=== PATIENT | male | born 1985 | race Caucasian/White ===

== ENCOUNTER 2017-01-05 14:56 | Inpatient (IN) | payer SELFPAY ==
--- NOTE | ~2017-01-05 | PN ---
Unit #: [id number] #: [id number] Patient: MICHAELA RUSSELL [id number] [facility] [address] [place] [address] [id number] MR#: [id number] NAME: MICHAELA RUSSELL. ROOM: P214 Age: 31 Sex: M Admission Date: 01/05/2017 : 1985 Attending Physician: Beka Syed M.D. Admitting Physician: Beka Syed M.D. Primary Care Physician: Primary Care Physician Sophie PAIGE NOTES DATE OF SERVICE: 01/06/2017 SUBJECTIVE Mr. Russell is a 31-year-old white male who was seen today and chart was reviewed, and case was discussed with the staff. He has been anxious, withdrawn, and seclusive to himself and reports persistent depressive symptoms with feelings of hopelessness. Meanwhile, he has been compliant with the treatment recommendations and has been taking his medications including his Celexa and Vistaril and has been tolerating them fairly well. MENTAL STATUS EXAMINATION Young white male who was casually dressed with a fair personal hygiene and appears to be in no acute distress or discomfort. He was awake and alert on interaction with intact orientation. His mood was anxious with a congruent affect. He reports having suicidal ideation, but denies any homicidal ideations. His insight and judgment remain slightly impaired. TREATMENT PLAN 1. We will continue him on his current treatment protocol. We will monitor his response to the medications and make further adjustments as needed. 2. We will continue to follow up. Dictated by... Antonio Leo/elaine TD: 01/07/2017 05:20 JOB #: [id number] [facility]LE[facility] PROGRESS NOTES X Beka Syed MD PROGRESS NOTE
--- NOTE | ~2017-01-05 | A ---
[facility] Nutrition Therapy DATE: 01/06/17 Patient: MICHAELA DE LEON Physician: HAYDEN Address: [facility] [address] Room/Bed: [address], Zip: [place] [address] Admit Date: 01/05/17 Date of : [birth year] Height: 5 11 Weight: 134 61.12566 NUTRITIONAL ASSESSMENT: REASON: Low BMI + 1 point malnutrition risk score for unintentional weight loss Admitting Dx: 31 y/o male admitted with depression, ETOH abuse PMH: No new H&P. Obtained from 11/25/16 H&P: 3 ppd smoker, ETOH abuse (binge drinker), SI Anthropometrics: Ht: 71", Wt: 135 lbs, IBW: 172 lbs, 78% IBW, BMI: 18 Labs: Glucose 137 Meds: Milk of Mg, Mag-al, Thiamine, Folic acid, Balance B-50, MVI with minerals, Phenergan/zofran, psych meds noted I/O & Bowel function: No issues Assessment: Chart reviewed, events noted. Patient with several previous admissions to this facility with most recent admission in late November, undergoing ETOH detox. Patient is a cook at [email or web address], lives with parents. He is now clinically underweight, weight on 11/25/16 documented as 155 lbs, patient now weighs 135 lbs. Reported poor appetite and weight loss of unknown amount during needs assessment at admission yesterday, no appetite yet reported for today. RD suspected weight loss of approx. 20 lbs in the past 5 weeks per past weights if accurate (13% body weight loss; severe) due to worsened depression, SI and binge drinking. Patient is on a regular diet with large portion entree ordered per diet order, but this is not documented on cardex- RD added to cardex and will notify [facility] staff to send larger portions. Patient may benefit from ONS. RD will follow-up to further assess PO intake and nutritional needs, see recs below. Dx: Underweight r/t depression, SI, ETOH abuse AEB suspected 13% body weight loss in 5 weeks, BMI 18, 78% IBW. Intervention: Lg portion entrees at lunch/dinner, Ensure? Monitoring, Evaluation and Goals: 1. Increase in oral intake > 50% of meals. 2. Gradual weight gain towards a healthy BMI range. Monitor: Per protocol, criteria to determine if above goals met Recommendations: [facility] DATE: 01/06/17 Patient: MICHAELA DE LEON Physician: HAYDEN Address: [address] Room/Bed: [address], Zip: [place] [address] Admit Date: 01/05/17 Date of : [birth year] Height: 5 11 Weight: 134 61.73110 1. Continue regular diet with no caffeine per MD. Encourage adequate meal intake and fluids. 2. RD informing [facility] staff to send large portion entrees at lunch and dinner in hopes of increasing oral kcal/protein intake per MD order. If PO intake is consistently < 50% of meals please order Ensure Plus BID (available in chocolate or vanilla, requires MD order). 3. Please weigh q 3 days for monitoring purposes as the patient is underweight. 4. Continue vitamins. RD will follow hospital course Moderate nutrition risk Respectfully, Carmina Venegas, DOMINIC, LD [facility] cc: client file
--- NOTE | ~2017-01-05 | HP ---
Unit #: [id number] #: [id number] Patient: MICHAELA DE LEON [id number] [place] [address] [id number] I MR#: [id number] NAME: MICHAELA DE LEON. ROOM: P214 Age: 31 Sex: M Admission Date: 01/05/2017 : 1985 Attending Physician: Beka Syed M.D. Admitting Physician: Beka Syed M.D. Primary Care Physician: Primary Care Physician No HISTORY AND PHYSICAL HISTORY OF PRESENT ILLNESS Michaela is a 31 year old admitted to [address] [place] [address] because of his abuse of alcohol. He reports he has been sober for 45 days and recently relapsed. PAST MEDICAL HISTORY Long history of alcohol abuse. PAST SURGICAL HISTORY Nothing reported. ALLERGIES No known drug allergies. SOCIAL HISTORY Smokes up to three packs per day. Drinks at least a case of beer on a daily basis. Has a history of illicit drug use but has been clean for three years. FAMILY HISTORY Medically noncontributory. REVIEW OF SYSTEMS CONSTITUTIONAL: No fever or chills. HEENT: Denies any sore throat, ear pain or runny nose. CARDIOVASCULAR: Denies chest pain, irregular heart rhythm or palpitations. CHEST: Denies shortness of breath or cough. No hemoptysis. GASTROINTESTINAL: Denies nausea, vomiting, diarrhea or chronic constipation. ENDOCRINE: Denies history of increased thirst or urination. No recent significant weight loss or gain. GENITOURINARY: Denies dysuria, frequency, or hematuria. SKIN: Denies any rashes. HEMATOLOGIC: Denies history of increased bleeding or bruising. MUSCULOSKELETAL: Denies any hot, swollen joints. No generalized muscle pain. NEUROLOGIC: Denies problems with vision or speech. No frequent, severe headaches. No numbness, tingling or weakness in any extremities. Denies loss of bladder or bowel control. CURRENT MEDICATIONS Detox protocol. Unit #: [id number] #: [id number] Patient: MICHAELA DE LEON PHYSICAL EXAMINATION GENERAL: Alert, well-nourished, in no apparent distress. VITAL SIGNS: Blood pressure 102/54, heart rate 68, respirations 16, temperature 98.6. WEIGHT: 135 pounds. HEIGHT: 5'11". SKIN: Warm and dry without rash or lesion. HEENT: Normocephalic. TMs not viewed. Oral and nasal passages clear. Conjunctivae clear. Pupils equal, round and reactive to light and accommodation. Extraocular movements intact. NECK: Supple without lymphadenopathy or thyromegaly. HEART: Regular rate and rhythm without murmur. LUNGS: Clear. ABDOMEN: Soft, nontender. : Not done. EXTREMITIES: No evidence of cyanosis, clubbing or edema. Moves all extremities without focal deficit. NEUROLOGICAL: Grossly within normal limits. Cranial Nerves: II: Visual bansal are intact. III, IV AND : Extraocular movements are intact. Pupils are equal, round and reactive to light. V: Facial sensation is grossly normal. VII: Facial movements and expression are normal. VIII: Auditory acuity grossly intact. IX, X: Uvula is midline. Phonation is normal. XI: Patient shrugs shoulders and turns head normally. XII: Tongue protrudes in the midline. Sensory and Motor Function: Sensory and motor sensation is grossly normal. Motor: moves all extremities well. Coordination: Gait is normal. Deep Tendon Reflexes: Intact. IMPRESSION Psychiatric admission RECOMMENDATIONS PSYCHIATRIC: Per psychiatrist. MEDICAL: I see no contraindications to participating in facility's activities. MEDICAL PROGNOSIS Good. MEDICAL CONDITION Stable. Dictated by... Brie Cross PElíasAElías-Augustine. for Antonio Baker/lavonne TD: 01/06/2017 23:03 JOB #: [id number] Unit #: [id number] #: [id number] Patient: MOISESMICHAELA Gianna HISTORY AND PHYSICAL X Brie Cross PA X HISTORY AND PHYSICAL
--- NOTE | ~2017-01-05 | PA ---
Unit #: [id number] #: [id number] Patient: [facility]LL [id number] [facility] [address] [place] [address] [id number] MR#: [id number] NAME: MICHAELA RUSSELL. ROOM: P214 Age: 31 Sex: M Admission Date: 01/05/2017 : 1985 Date of Assessment: 01/05/2017 Attending Physician: Beka Syed M.D. Admitting Physician: Beka Syed M.D. Primary Care Physician: Primary Care Physician No PSYCHIATRIC ASSESSMENT DATE OF SERVICE 01/05/2017. IDENTIFYING DATA Mr. Russell is a 31-year-old single white male, who is a resident of [place], [place] and is known to us from previous encounter, was self-referred to the hospital on a voluntary basis. CHIEF COMPLAINT "I relapsed after I had a bad night at work." HISTORY OF PRESENT ILLNESS Mr. Russell is a 31-year-old white male with history of substance abuse and dependence, who was discharged from my care 5 weeks ago and brought himself back to the hospital stating that relapsed after apparently he had a bad night at work, "I lost it, my life sucks. I don't know how much I drank last night. I don't remember last night. I'm out of my medication because I don't have insurance. I just don't want to live anymore. I can't handle it anymore. I have been thinking about hanging myself today." The patient reports that last night after being sober for 45 days, drank 40 beers last night and blacked out and does endorse increasing depression, anxiety, irritability, feelings of hopelessness and helplessness, and suicidal ideation and was seen to be danger to self and others and as such, recommendation for inpatient level of care for safety and stabilization was made. SUBSTANCE ABUSE HISTORY The patient has history of alcohol, cannabis, cocaine, and amphetamine abuse, and currently alcohol has been his drug of choice and reports he was sober and then he relapsed and drank more than 40 beers last night and ended up having blackout. PAST PSYCHIATRIC HISTORY The patient has had history of inpatient chemical dependency and psychiatric treatment at [facility] and has been diagnosed and treated for mood disorder and alcohol dependence. Review of the medical records indicate that he is supposed to be on Celexa and Vistaril, but apparently has been out of his medication and as such has been decompensating. PAST MEDICAL HISTORY No acute or chronic medical illnesses. Unit #: [id number] #: [id number] Patient: MICHAELA RUSSELL ALLERGIES No known medication allergies. PERSONAL AND SOCIAL HISTORY A 31-year-old white male, who reports that he is employed and lives with his parents and has fairly decent social support system. MENTAL STATUS EXAMINATION Young white male who was casually dressed with fair personal hygiene, appears to be in no acute distress or discomfort. He was awake and alert on interaction with intact orientation to time, place, and person. His mood was anxious and depressed with a congruent affect. His speech was slow and restricted in content. He reports having suicidal ideations, but denies any homicidal ideations, and also denies any auditory or visual hallucinations. His insight and judgment remain significantly impaired. DIAGNOSTIC IMPRESSION Psychiatric: Major depressive disorder, recurrent, moderate, without psychotic features; alcohol dependence, moderate. Medical: None. Stressors: Moderate psychosocial stressors. TREATMENT PLAN 1. The patient has presented with history of substance abuse and mood disorder, and has been decompensating and will need inpatient hospitalization for detoxification, safety, and stabilization. We will start him back on his home medications and detox protocol. We will closely monitor for any worsening withdrawal symptoms. 2. Supportive therapy was provided to the patient. 3. Safe, structured, and nourishing environment will be provided. ESTIMATED LENGTH OF STAY 5 to 7 days. ABILITY TO HELP SELF Limited. WILLINGNESS TO HELP SELF The patient appears to be willing to help self. STRENGTHS 1. Communicative. 2. Cooperative. PROBLEMS 1. Chronic dysphoric symptoms. 2. Chronic chemical dependency. 3. Poor social support system. DISCHARGE CRITERIA This will be contingent upon the patient's ability to go through detox without having any significant withdrawal symptoms as well as his ability to stay safe to himself, particularly after discharge from the hospital. Dictated by..Elías Syed M.D. Unit #: [id number] #: [id number] Patient: MICHAELA RUSSELL IAA/modl TD: 01/06/2017 23:18 JOB #: [id number] PSYCHIATRIC ASSESSMENT X Beka Syed MD PSYCHIATRIC ASSESSMENT
--- NOTE | ~2017-01-05 | PN ---
Unit #: [id number] #: [id number] Patient: MICHAELA RUSSELL [id number] [facility] [address] [place] [address] [id number] MR#: [id number] NAME: MICHAELA RUSSELL. ROOM: P214 Age: 31 Sex: M Admission Date: 01/05/2017 : 1985 Attending Physician: Beka Syed M.D. Admitting Physician: Beka Syed M.D. Primary Care Physician: Primary Care Physician Sophie PAIGE NOTES DATE OF SERVICE: 01/07/2017 SUBJECTIVE Mr. Russell is a 31-year-old white male, who was seen today and chart was reviewed and the case was discussed with the staff. He has been anxious and withdrawn, though has not shown any agitation or irritability and has been cooperative with the treatment recommendations and has been taking the medications and tolerating them fairly well. MENTAL STATUS EXAMINATION Young white male, who was casually dressed with fair personal hygiene, appears to be in no acute distress or discomfort. He was awake and alert on interaction with intact orientation. His mood was anxious with a congruent affect. His speech was slow and goal directed. He denies any suicidal or homicidal ideations. His insight and judgment remain slightly impaired. TREATMENT PLAN We will continue him on his current treatment protocol. We will monitor his response and we will consider doing discharge planning tomorrow. Dictated by... Antonio Leo/elaine TD: 01/09/2017 10:07 JOB #: [id number] [facility] PROGRESS NOTES X Beka Syed MD PROGRESS NOTE
--- NOTE | ~2017-01-05 | DS ---
Unit #: [id number] #: [id number] [facility]: [facility] [id number] [facility] [address] [place] [address] [id number] MR#: [id number] NAME: MICHAELA RUSSELL. ROOM: P214 Age: 31 Sex: M Admission Date: 01/05/2017 : 1985 Discharge Date: 01/08/2017 Attending Physician: Beka Syed M.D. Primary Care Physician: Primary Care Physician No DISCHARGE SUMMARY IDENTIFYING DATA Mr. Russell is a 31-year-old single white male, who is a resident of [place], [place], and known to us from previous encounter, was self-referred to the hospital. DISCHARGE DIAGNOSES Psychiatric: Major depressive disorder, recurrent, moderate, without psychotic features; generalized anxiety disorder; alcohol dependence, moderate. Stressors: Moderate psychosocial stressors. HISTORY OF PRESENT ILLNESS Please see initial psychiatric evaluation for details. PAST PSYCHIATRIC HISTORY Please see initial psychiatric evaluation for details. PAST MEDICAL HISTORY Please see initial psychiatric evaluation for details. HOSPITAL COURSE The patient was admitted to the adult chemical dependency unit at [facility] and was oriented to the hospital environment. Routine p.r.n. medications were initiated, and he was started back on his home medications and medications were initiated and he was started back on his home medications including his Celexa and Vistaril and trazodone was also given to help him with sleep and he was closely monitored. He was taking the medications regularly and was tolerating them fairly well and was able to show a decent and therapeutic response and was willing to continue treatment on an outpatient basis and as such, it was decided that he will be discharged home and will continue treatment on an outpatient basis. DISCHARGE MEDICATIONS Celexa 20 mg a day for depression, Vistaril 50 mg t.i.d. for anxiety, trazodone 100 mg at bedtime for sleep. DISCHARGE CONDITION Stable. PROGNOSIS Fair. Dictated by... Unit #: [id number] #: [id number] Patient: MICHAELA RUSSELL Antonio Leo/ronil TD: 01/09/2017 00:33 JOB #: [id number] DISCHARGE SUMMARY X Beka Syed MD DISCHARGE SUMMARY
[2017-01-06 09:36] LABS: BASOPHIL% 0.7 % (0-2.5); EOSINOPHIL# 0.2 X10e3 (0-0.7); EOSINOPHIL% 2.3 % (0.0-7.0); HEMATOCRIT 44.4 % (38.0-50.0); HEMOGLOBIN 14.7 gm/dL (13.0-16.0); LYMPHOCYTE# 2.2 X10e3 (1.0-3.5); LYMPHOCYTE% 31.1 % (17.0-45.0); MEAN CORPUSCULAR HEMOGLOBIN 30.4 PG (28-34); MEAN CORPUSCULAR HGB CONC 33.1 g/dL (30-36); MONOCYTE# 0.6 X10e3 (0-1.0); MONOCYTE% 8.1 % (3.0-12.0); NEUTROPHIL% 57.8 % (40-75); PLATELET COUNT 198 X10e3 (140-420); RED BLOOD COUNT 4.82 X10e (3.90-5.60); RED CELL DISTRIBUTION WIDTH 12.7 % (11.0-15.5); WHITE BLOOD COUNT 6.9 X10e3 (4.0-10.5)
[2017-01-06 09:43] LABS: DIFF IND NO
[2017-01-06 12:47] LABS: URINE APPEARANCE CLOUDY; URINE BILIRUBIN NEG (NEG); URINE BLOOD NEG (NEG); URINE COLOR YELLOW; URINE GLUCOSE NEG (NEG); URINE KETONE NEG (NEG); URINE LEUKOCYTE ESTERASE TRACE (NEG); URINE NITRATE NEG (NEG); URINE PROTEIN NEG (NEG); URINE SPECIFIC GRAVITY 1.025 (1.003-1.035)
[2017-01-06 12:53] LABS: URBCS1 AUWI 0-2 /[HPF] (0-2); URINE BACTERIA AUWI NEG (NEGATIVE); URINE SQUAMOUS EPITHELIAL CELL OCC /[HPF]
[2017-01-06 13:02] LABS: THYROID STIMULATING HORMONE 0.78 uIU/ml (0.34-5.60)
[2017-01-06 13:09] LABS: FREE THYROXIN (T4) 0.73 ng/dL (0.58-1.64)
[2017-01-06 13:10] LABS: U HYALINE CASTS AUWI 0-2 /[LPF]
[2017-01-06 13:22] LABS: ALBUMIN SERUM 4.1 g/dL (3.5-5.0); ALKALINE PHOSPHATASE 80 U/L (32-92); ALT (SGPT) 13 U/L (10-40); AST (SGOT) 22 U/L (10-42); BILIRUBIN,TOTAL 0.6 mg/dL (0.2-2.0); BLOOD UREA NITROGEN 12 mg/dL (9-23); BUN/CREATININE RATIO 13.33; CALCIUM SERUM 9.2 mg/dL (8.4-10.2); CARBON DIOXIDE 29 mmol/L (22-31); CHLORIDE 104 mmol/L (100-111); CREATININE SERUM 0.9 mg/dL (0.6-1.4); GLOM FILT RATE Estimated ABOVE60 mL/min (>60); GLUCOSE FASTING 137 mg/dL (70-110); POTASSIUM 4.2 mmol/L (3.5-5.1); PROTEIN TOTAL SERUM 6.1 g/dL (6.0-8.3); SODIUM 140 mmol/L (135-145)
[2017-01-06 13:36] LABS: AMPHETAMINE NEG (NEG); BARBITURATES NEG (NEG); BENZODIAZEPINES NEG (NEG); COCAINE NEG (NEG); MARIJUANA POS (NEG); OPIATES NEG (NEG); TRICYCLIC ANTIDEPRESSANTS NEG (NEG); U METHADONE NEG (NEG)
== END 2017-01-08 09:35 | DRG 885 ==
LOC: P2S 14:56
PROVIDERS: Psychiatry & Neurology Psychiatry
PROC: HZ2ZZZZ Detoxification Services for Substance Abuse Treatment (ICD-10-PCS; principal; 2017-01-05)
DX: F33.1 Major depressive disorder, recurrent, moderate (principal); R45.851 Suicidal ideations; F10.20 Alcohol dependence, uncomplicated; F17.200 Nicotine dependence, unspecified, uncomplicated; F41.1 Generalized anxiety disorder
CPT/HCPCS: 80053; 80307; 81003; 84439; 84443; 85025; 86592